=== PATIENT | female | born 1970 | race Caucasian/White ===

== ENCOUNTER 2016-08-11 15:28 | Emergency (ER) | payer MEDICAID ==
[~2016-08-11] VITALS: Ht 170.2 cm; Wt 101.6 kg
[2016-08-11 15:30] VITALS: BP 161/99; PULSE 94; RESP 14; TEMP 97.4; O2SAT 96
[2016-08-11 16:38] VITALS: BP 154/88; PULSE 88; RESP 14; TEMP 97.4; O2SAT 96
== END 2016-08-11 16:38 | disposition home or self-care (01) ==
LOC: SED 15:28
DX: J20.9 Acute bronchitis, unspecified (principal); F31.9 Bipolar disorder, unspecified
CPT/HCPCS: 71020-TC; 99284

== ENCOUNTER 2016-09-16 13:05 | Emergency (ER) | payer MEDICAID ==
[~2016-09-16] VITALS: Ht 170.2 cm; Wt 101.6 kg
[2016-09-16 13:15] VITALS: PULSE 89; RESP 16; TEMP 98.2; O2SAT 99
--- NOTE | 2016-09-16 13:15 | NUR ---
DR. HOLT EXAMINING PT
--- NOTE | 2016-09-16 13:20 | NUR ---
Pt brought by self, A&Ox4, pt c/o cough and chest pain during cough for 2 weeks, skin pink and warm, respirations even and unlabored, afebrile, VS WNL.
[2016-09-16 13:52] VITALS: BP 128/80; PULSE 89; RESP 16; TEMP 98.2; O2SAT 99
--- NOTE | 2016-09-16 13:54 | NUR ---
Patient given written and verbal discharge instructions and verbalizes understanding. ER MD discussed with patient the results and treatment provided.Patient in stable condition. ID arm band removed. Rx of Prednisone, Proair and Azythromycin given. Patient educated on pain management and to follow up with PMD. Pain Scale 1/10 tolerable for patient . Opportunity for questions provided and answered.
== END 2016-09-16 13:54 | disposition home or self-care (01) ==
LOC: SED 13:05
DX: J20.9 Acute bronchitis, unspecified (principal); R03.0 Elevated blood-pressure reading, without diagnosis of hypertension; F17.200 Nicotine dependence, unspecified, uncomplicated; F31.9 Bipolar disorder, unspecified; Z71.6 Tobacco abuse counseling
CPT/HCPCS: 99283

== ENCOUNTER 2018-05-09 20:04 | Emergency (ER) | payer MEDICAID ==
[~2018-05-09] VITALS: Ht 170.2 cm; Wt 100.7 kg
[2018-05-09 20:27] VITALS: BP_SYST 146
[2018-05-09] MEDS ORDERED: KETOROLAC TROMETHAMINE 30 MG VIAL IM ONE (21:15)
[2018-05-09 21:30] LABS: BILIRUBIN,URINE NEGATIVE (NEGATIVE); BLOOD, URINE 3+ (NEGATIVE); GLUCOSE,URINE NEGATIVE (NEGATIVE); KETONES,URINE NEGATIVE (NEGATIVE); LEUKOCYTE ESTERASE ,URINE NEGATIVE (NEGATIVE); NITRITE, URINE NEGATIVE (NEGATIVE); PROTEIN URINE 1+ (NEGATIVE); UROBILINOGEN,URINE 0.2 (0.2-1.0)
[2018-05-09 21:34] LABS: CLARITY/URINE CLOUDY (CLEAR); COLOR,URINE RED (YELLOW)
[2018-05-09 21:35] LABS: BASOPHILS # (AUTO) 0.1 K/uL (0.0-0.2); BASOPHILS % (AUTO) 1.2 % (0.0-2.0); EOSINOPHILS # (AUTO) 0.2 K/uL (0.0-0.4); EOSINOPHILS % (AUTO) 1.6 % (0.0-4.0); HEMATOCRIT 35.5 % (36-48); HEMOGLOBIN 12.2 g/dL (12.0-16.0); LYMPHOCYTES # (AUTO) 2.6 K/uL (1.0-5.5); LYMPHOCYTES % (AUTO) 22.9 % (20.5-51.5); MEAN CORPUSCULAR HEMOGLOBIN 30 pg (27-31); MEAN CORPUSCULAR HGB CONC 35 % (32-36); MEAN CORPUSCULAR VOLUME 88 fL (79.0-98.0); MONOCYTES # (AUTO) 0.9 K/uL (0.0-1.0); MONOCYTES % (AUTO) 7.5 % (1.7-9.3); NEUTROPHILS # (AUTO) 7.6 K/uL (1.8-7.7); NEUTROPHILS % (AUTO) 66.8 % (40.0-70.0); PLATELET COUNT (AUTO) 324 K/uL (130-430); RED BLOOD CELL COUNT(AUTO) 4.02 MIL/uL (4.2-6.2); RED CELL DISTRIBUTION WIDTH 12.2 % (9.0-15.0); WHITE BLOOD COUNT (AUTO) 11.4 K/uL (4.8-10.8)
[2018-05-09 21:35] LABS: BACTERIA,URINE FEW /HPF (None Seen); MUCUS,URINE None Seen /LPF (None Seen); RBC,URINE >100 /HPF (0-3); WBC,URINE 0-3 /HPF (0-3)
[2018-05-09 21:45] LABS: CALCIUM 8.8 mg/dL (8.4-11.0); CREATININE 0.77 mg/dL (0.55-1.30); POTASSIUM 3.9 mmol/L (3.5-5.1)
[2018-05-09 21:49] LABS: ALBUMIN 3.2 g/dL (3.4-4.8); TOTAL BILIRUBIN 0.1 mg/dL (0.0-1.0)
[2018-05-09] MEDS ORDERED: IOHEXOL 100 ML IV ONE (22:21)
[2018-05-09 23:50] VITALS: BP_SYST 130
== END 2018-05-09 23:50 | disposition home or self-care (01) ==
LOC: SED 20:04
DX: R10.30 Lower abdominal pain, unspecified (principal); F31.9 Bipolar disorder, unspecified; R03.0 Elevated blood-pressure reading, without diagnosis of hypertension
CPT/HCPCS: 36415; 74177; 80053; 81000; 81025; 83690; 85025; 96372; 99284; J1885; Q9967

== ENCOUNTER 2018-06-17 18:50 | Emergency (ER) | payer MEDICAID ==
[~2018-06-17] VITALS: Ht 170.2 cm; Wt 101.6 kg
[2018-06-17] MEDS ORDERED: NACL 0.9% 1,000 ML IV ONE (18:52)
--- NOTE | 2018-06-17 18:58 | NUR ---
Patient to ER bed 7 to gown for evaluation. Side rails up.
[2018-06-17 18:59] VITALS: BP_SYST 135
[2018-06-17] MEDS ORDERED: KETOROLAC TROMETHAMINE 30 MG VIAL IVP ONE (19:00)
[2018-06-17] MEDS ORDERED: ONDANSETRON HCL 4 MG/2 ML VIAL IVP ONE (19:00)
--- NOTE | 2018-06-17 19:00 | NUR ---
ER at bedside examining patient.
--- NOTE | 2018-06-17 19:09 | NUR ---
Pt came into the ED for multiple episodes of watery diarrhea and vomiting. Pt says she has body aches and abdominal pain. Pt reported to have 15 episodes of diarrhea today. She mentioned she was able to eat some chicken noodle soup today. No other complaints/injuries noted. No chest pain, sob, chills. Will. cont. to monitor.
[2018-06-17] MEDS ORDERED: ACETAMINOPHEN 500 MG TABLET PO ONE (19:15)
[2018-06-17 19:34] LABS: BASOPHILS % (AUTO) 0.2 % (0.0-2.0); EOSINOPHILS # (AUTO) 0.1 K/uL (0.0-0.4); EOSINOPHILS % (AUTO) 0.7 % (0.0-4.0); HEMOGLOBIN 12.2 g/dL (12.0-16.0); LYMPHOCYTES % (AUTO) 13.8 % (20.5-51.5); MEAN CORPUSCULAR HEMOGLOBIN 29 pg (27-31); MEAN CORPUSCULAR HGB CONC 34 % (32-36); MEAN CORPUSCULAR VOLUME 86 fL (79.0-98.0); MONOCYTES # (AUTO) 0.2 K/uL (0.0-1.0); MONOCYTES % (AUTO) 3.1 % (1.7-9.3); NEUTROPHILS # (AUTO) 5.9 K/uL (1.8-7.7); NEUTROPHILS % (AUTO) 82.2 % (40.0-70.0); PLATELET COUNT (AUTO) 345 K/uL (130-430); RED BLOOD CELL COUNT(AUTO) 4.19 MIL/uL (4.2-6.2); RED CELL DISTRIBUTION WIDTH 12.1 % (9.0-15.0); WHITE BLOOD COUNT (AUTO) 7.2 K/uL (4.8-10.8)
[2018-06-17 19:35] LABS: CALCIUM 8.7 mg/dL (8.4-11.0); CREATININE 0.97 mg/dL (0.55-1.30); POTASSIUM 3.8 mmol/L (3.5-5.1)
[2018-06-17 19:40] LABS: ALBUMIN 3.5 g/dL (3.4-4.8); TOTAL BILIRUBIN 0.3 mg/dL (0.0-1.0)
[2018-06-17 19:41] LABS: BILIRUBIN,URINE NEGATIVE (NEGATIVE); CLARITY/URINE SL CLOUDY (CLEAR); COLOR,URINE YELLOW (YELLOW); GLUCOSE,URINE NEGATIVE (NEGATIVE); KETONES,URINE TRACE (NEGATIVE); LEUKOCYTE ESTERASE ,URINE NEGATIVE (NEGATIVE); NITRITE, URINE NEGATIVE (NEGATIVE); PH,URINE 5.5 (5.0-8.0); PROTEIN URINE TRACE (NEGATIVE)
[2018-06-17 19:49] LABS: BLOOD, URINE TRACE (NEGATIVE)
[2018-06-17 19:50] LABS: BACTERIA,URINE MODERATE /HPF (None Seen); RBC,URINE 0-3 /HPF (0-3); URINE AMORPHOUS URATE 3+ /HPF (None Seen); WBC,URINE NONE SEEN /HPF (0-3)
[2018-06-17 19:51] LABS: MUCUS,URINE None Seen /LPF (None Seen)
--- NOTE | 2018-06-17 20:00 | NUR ---
Pt resting comfortably in bed. No signs of acute distress.
[2018-06-17 21:12] VITALS: BP_SYST 135
--- NOTE | 2018-06-17 21:12 | NUR ---
Patient given written and verbal discharge instructions and verbalizes understanding. ER MD discussed with patient the results and treatment provided. Patient in stable condition. ID arm band removed. IV catheter removed intact and dressing applied, no active bleeding. Rx of lomotil and zofran given. Patient educated on pain management and to follow up with PMD within 2-3 days. Pain Scale 0/10. Opportunity for questions provided and answered. Medication side effect fact sheet provided.
== END 2018-06-17 21:12 | disposition home or self-care (01) ==
LOC: SED 18:50
DX: K52.9 Noninfective gastroenteritis and colitis, unspecified (principal); J11.1 Influenza due to unidentified influenza virus with other respiratory manifestations; F17.200 Nicotine dependence, unspecified, uncomplicated; R03.0 Elevated blood-pressure reading, without diagnosis of hypertension; F31.9 Bipolar disorder, unspecified
CPT/HCPCS: 36415; 71045; 80053; 81000; 81025; 82150; 82550; 83605; 83690; 84484; 85025; 86710; 87040; 93005; 96361; 96374; 96375; 99284; J1885; J2405; J7030